=== PATIENT | female | born 2000 | race Caucasian/White ===

== ENCOUNTER 2022-06-20 07:55 | Outpatient (CLI) | payer BC, SELFPAY | END 2022-06-20 07:56 | disposition home or self-care (01) | LOC: NFLDREF 06-21 11:28 | PROVIDERS: PCP Family Medicine; Referring Provider Family Medicine; Visit Provider Family Medicine | DX: F33.9 Major depressive disorder, recurrent, unspecified (principal); R53.83 Other fatigue; E66.01 Morbid (severe) obesity due to excess calories; Z13.1 Encounter for screening for diabetes mellitus; Z13.6 Encounter for screening for cardiovascular disorders | CPT/HCPCS: 80053; 80061; 84439; 84443 ==

== ENCOUNTER 2023-01-11 08:44 | Outpatient (CLI) | payer BC, SELFPAY | END 2023-01-11 08:45 | disposition home or self-care (01) | LOC: FRMREF 08:45 | PROVIDERS: PCP Family Medicine; Visit Provider Family Medicine | DX: E03.9 Hypothyroidism, unspecified (principal) | CPT/HCPCS: 84443 ==